=== PATIENT | female | born 1990 | race Caucasian/White ===

== ENCOUNTER 2022-05-08 23:26 | Emergency (ER) | payer MEDICAID ==
[~2022-05-08] VITALS: Ht 160 cm; Wt 144.9 kg
[2022-05-09] MEDS ORDERED: ketorolac trometh. 30mg/ml inj. IM ONE (02:20)
[2022-05-09] MEDS ORDERED: dexamethasone sod phosphate 10mg/ml inj PO STA (02:20)
[2022-05-09 02:51] VITALS: BP 124/74
== END 2022-05-09 02:52 | disposition home or self-care (01) ==
LOC: ER 23:27
DX: J02.9 Acute pharyngitis, unspecified (principal); B34.9 Viral infection, unspecified; R53.83 Other fatigue; R51.9 Headache, unspecified
CPT/HCPCS: 96372; 99283; J1100; J1885